=== PATIENT | female | born 1990 | race Hispanic/Latino ===

== ENCOUNTER 2018-06-12 10:48 | Emergency (ER) | payer BC, OTHER ==
[2018-06-12 10:50] VITALS: BMI 20.2
[2018-06-12 10:52] VITALS: RESP 18
[2018-06-12] MEDS ORDERED: Sodium Chloride 0.9% 1,000 ML IV STA (11:49)
--- NOTE | 2018-06-12 12:22 | ED PDOC ---
History of Present Illness History of Present Illness: 27 year old female presents to the ED for evaluation of a cough, posttussive vomiting, chills and sweats since last night. Oatient repors that she was diagnosed with pneumonia last month and the cough has not resolved since. It is sometimes productive of yellow sputum. Last night, she developed chills and sweats. Patient reports she feels like she has the flu. Denies other complaints including fever and body aches. PMD: none provided HPI: Influenza Time Seen by Provider: 06/12/18 11:22 Chief Complaint: Flu-like Symptoms Chief Complaint (Provider): Flu-like Symptoms History Per: Patient Exam Limitations: no limitations Onset/Duration Of Symptoms: Days Symptoms include: cough, vomiting, other (chills and sweats) Past Medical History Reviewed: Historical Data, Nursing Documentation, Vital Signs Vital Signs: Last Vital Signs Temp 98.1 F 06/12/18 10:50 Pulse 90 06/12/18 10:50 Resp 18 06/12/18 10:50 BP 124/75 06/12/18 10:50 Pulse Ox 99 06/12/18 10:50 - Medical History PMH: No Chronic Diseases - Surgical History Other surgeries: 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 Negative for: Fever Respiratory: Positive for: Cough, Sputum (sometimes; yellow) Gastrointestinal: Positive for: Vomiting Physical Exam - Reviewed Nursing Documentation Reviewed: Yes Vital Signs Reviewed: Yes - Physical Exam Appears: Positive for: Non-toxic, No Acute Distress (speaking in full sentences) Head Exam: Positive for: ATRAUMATIC, NORMAL INSPECTION, NORMOCEPHALIC Skin: Positive for: Normal Color, Warm, Dry Eye Exam: Positive for: EOMI, Normal appearance, PERRL Neck: Positive for: Normal, Painless ROM, Supple Cardiovascular/Chest: Positive for: Regular Rate, Rhythm. Negative for: Murmur Respiratory: Positive for: Normal Breath Sounds. Negative for: Respiratory Distress Gastrointestinal/Abdominal: Positive for: Normal Exam, Soft. Negative for: Tenderness Back: Positive for: Normal Inspection. Negative for: L CVA Tenderness, R CVA Tenderness Extremity: Positive for: Normal ROM (x 4). Negative for: Deformity Neurological/Psych: Positive for: Awake, Alert, Normal Tone, Oriented (x 3). Negative for: Motor/Sensory Deficits Medical Decision Making Medical Decision Makin:48 Impression: flu-like symptoms Initial Plan: --CBC --CMP --Urine dip --Urine preg --NS IV 1,000 mls --CXR --Zofran 4 mg IV --Blood cx --UA Accession No. : [id number] Patient Name / ID : ALVARADO Stratton / [id number] Exam Date : 06/12/2018 12:35:30 ( Approved ) Study Comment : Sex / Age : F / 27Y Creator : Mercy Mcgraw MD Dictator : Mercy Mcgraw MD Digital Marketing Program Manager : Replenishment Associate : Mercy Mcgraw MD Approver2 : Report Date : 06/12/2018 13:01:55 My Comment : Date of service: 06/12/2018 HISTORY: Cough COMPARISON: No prior. TECHNIQUE: Chest PA and lateral FINDINGS: LINES AND TUBES: None. LUNG AND PLEURA: The lungs are well inflated. There is consolidation with air fluid level in the right perihilar region. There is multifocal linear atelectasis in the right lower lobe. No pleural effusion or pneumothorax. HEART AND MEDIASTINUM: The heart is not enlarged. No aortic atherosclerotic calcifications present. The hilar and mediastinal contours are within normal limits. SKELETAL STRUCTURES: The bony structures are within normal limits for the patient's age. VISUALIZED UPPER ABDOMEN: Normal. OTHER FINDINGS: There is mild elevation of the right hemidiaphragm. IMPRESSION: Consolidation with air-fluid level in the right perihilar region could represent cavitating pneumonia, abscess or bronchopleural fistula. Correlation with CT scan of the thorax with intravenous contrast is recommended for further evaluation. Accession No. : [id number] Patient Name / ID : ALVARADO MORALEZ / [id number] Exam Date : 06/12/2018 15:46:47 ( Approved ) Study Comment : Sex / Age : F / 27Y Creator : elio parada Dictator : Mercy Mcgraw MD Digital Marketing Program Manager : Replenishment Associate : Mercy Mcgraw MD Approver2 : Report Date : 06/12/2018 16:00:51 My Comment : Date of service: 06/12/2018 PROCEDURE: CT Chest with contrast HISTORY: Abnormal CXR COMPARISON: Plain radiographs performed earlier the same day. TECHNIQUE: Contiguous axial images were obtained through the chest with intravenous contrast enhancement. Sagittal and coronal reconstructions were performed. IV contrast: 90 cc Omnipaque 300 Radiation dose: Total exam DLP = 295.77 mGy-cm. This CT exam was performed using one or more of the following dose reduction techniques: Automated exposure control, adjustment of the mA and/or kV according to patient size, and/or use of iterative reconstruction technique. FINDINGS: LUNGS: The right lung is well inflated. Within the superior segment of the right lung posteriorly and corresponding to the abnormality seen on plain radiographs, there is a air-filled tubular structure with fluid level. There are also coarse linear and curvilinear coarse calcifications in the periphery of this lesion. There is multifocal linear subsegmental atelectasis in the right lower lobe and in the anterior aspect of the right middle lobe. The left lung is well inflated and clear. There are no endobronchial lesions. MEDIASTINUM: Unremarkable thoracic aorta. No aneurysm or dissection. Normal sized heart. There is trace pericardial effusion main pulmonary artery unremarkable. No vascular congestion. No lymphadenopathy. No aortic atherosclerotic calcification or mural plaque present. PLEURA: There is a small right pleural effusion. No left pleural effusion. No pneumothorax. BONES: No fracture. No destructive lesion. UPPER ABDOMEN: Grossly unremarkable. OTHER FINDINGS: None. IMPRESSION: 1. Tubular structure with fluid level and peripheral coarse linear and curvilinear calcifications in the superior segment of the right lower lobe posteriorly. The differential considerations include acute and/or chronic nonspecific infection/inflammation. Bronchopleural fistula and infected/complicated bronchogenic cyst are also other differential considerations. Bronchoscopic correlation is advised. 2. Small right pleural effusion. 18:00 Dr. Rodriguez (private Stucco Plasterer @ [facility]) paged. 18:[address] Turner, recommends Cefepime in addition to Zithromax and transfer to [facility] under his service. Call made to Transfer Center ([phone]). Pt agrees with transfer. Scribe Attestation: Documented by Li Rodriguez, acting as a scribe for Jose J Alcala MD Provider Scribe Attestation: All medical record entries made by the Scribe were at my direction and personally dictated by me. I have reviewed the chart and agree that the record accurately reflects my personal performance of the history, physical exam, medical decision making, and the department course for this patient. I have also personally directed, reviewed, and agree with the discharge instructions and disposition - Laboratory Results Result Diagrams: 06/12/18 12:02 06/12/18 12:02 - ECG O2 Sat by Pulse Oximetry: 99 Pulse Ox Interpretation: Normal - Critical Care Total Time (In Min): 60 Disposition - Clinical Impression Clinical Impression: Bronchopleural fistula - Disposition Disposition: Other Institution ([facility]) Disposition Time: 18:51 Condition: STABLE Forms: [employer] ([employer])
[2018-06-12 12:28] LABS: BASO % 0.4 % (0.0-2.0); EOS % 0.4 % (0.0-4.0); LYMPH # 1.7 K/uL (1.0-4.3); LYMPH % 16.4 % (20.0-40.0); MEAN CELL VOLUME 93.7 fl (81.0-99.0); MEAN CORPUSCULAR HEMOGLOBIN 31.4 pg (27.0-31.0); MEAN CORPUSCULAR HGB CONC 33.5 g/dL (33.0-37.0); MEAN PLATELET VOLUME 7.6 fl (7.2-11.7); MONO # 1.1 K/uL (0.0-0.8); MONO % 11.2 % (0.0-10.0); NEUT # 7.2 K/uL (1.8-7.0); NEUT % 71.6 % (50.0-75.0); RBC 4.47 Mil/uL (3.80-5.20); RED CELL DISTRIBUTION WIDTH 14.7 % (11.5-14.5); WHITE BLOOD COUNT 10.1 K/uL (4.8-10.8)
[2018-06-12 12:38] LABS: SQUAMOUS EPITHIAL 14 /hpf (0-5); URINE BACTERIA RARE (<OCC); URINE BILIRUBIN NEGATIVE (NEGATIVE); URINE BLOOD SMALL (NEGATIVE); URINE CLARITY SLIGHTY-CLOUDY (Clear); URINE COLOR YELLOW (YELLOW); URINE GLUCOSE (UA) NEG (NEGATIVE); URINE LEUKOCYTE ESTERASE NEG Leu/uL (Negative); URINE PROTEIN 30 mg/dL (NEGATIVE); URINE UROBILINOGEN 0.2-1.0 mg/dL (0.2-1.0)
[2018-06-12 12:41] LABS: ALB/GLOB RATIO 1.2 (1.0-2.1); ALBUMIN 4.3 g/dL (3.5-5.0); ALT/SGPT 28 U/L (9-52); AST/SGOT 27 U/L (14-36); BLOOD UREA NITROGEN 6 mg/dl (7-17); CALCIUM 9.5 mg/dL (8.4-10.2); GFR NON-AFRICAN AMERICAN > 60
[2018-06-12] MEDS ORDERED: Potassium Chloride 20 mEq ER Tab PO STA (12:48)
--- NOTE | 2018-06-12 13:05 | RAD ---
Date of service: 06/12/2018 HISTORY: Cough COMPARISON: No prior. TECHNIQUE: Chest PA and lateral FINDINGS: LINES AND TUBES: None. LUNG AND PLEURA: The lungs are well inflated. There is consolidation with air fluid level in the right perihilar region. There is multifocal linear atelectasis in the right lower lobe. No pleural effusion or pneumothorax. HEART AND MEDIASTINUM: The heart is not enlarged. No aortic atherosclerotic calcifications present. The hilar and mediastinal contours are within normal limits. SKELETAL STRUCTURES: The bony structures are within normal limits for the patient's age. VISUALIZED UPPER ABDOMEN: Normal. OTHER FINDINGS: There is mild elevation of the right hemidiaphragm. IMPRESSION: Consolidation with air-fluid level in the right perihilar region could represent cavitating pneumonia, abscess or bronchopleural fistula. Correlation with CT scan of the thorax with intravenous contrast is recommended for further evaluation.
[2018-06-12] MEDS ORDERED: Potassium Chloride 20 mEq ER Tab PO ONE (13:06)
--- NOTE | 2018-06-12 16:32 | CT ---
Date of service: 06/12/2018 PROCEDURE: CT Chest with contrast HISTORY: Abnormal CXR COMPARISON: Plain radiographs performed earlier the same day. TECHNIQUE: Contiguous axial images were obtained through the chest with intravenous contrast enhancement. Sagittal and coronal reconstructions were performed. IV contrast: 90 cc Omnipaque 300 Radiation dose: Total exam DLP = 295.77 mGy-cm. This CT exam was performed using one or more of the following dose reduction techniques: Automated exposure control, adjustment of the mA and/or kV according to patient size, and/or use of iterative reconstruction technique. FINDINGS: LUNGS: The right lung is well inflated. Within the superior segment of the right lung posteriorly and corresponding to the abnormality seen on plain radiographs, there is a air-filled tubular structure with fluid level. There are also coarse linear and curvilinear coarse calcifications in the periphery of this lesion. There is multifocal linear subsegmental atelectasis in the right lower lobe and in the anterior aspect of the right middle lobe. The left lung is well inflated and clear. There are no endobronchial lesions. MEDIASTINUM: Unremarkable thoracic aorta. No aneurysm or dissection. Normal sized heart. There is trace pericardial effusion main pulmonary artery unremarkable. No vascular congestion. No lymphadenopathy. No aortic atherosclerotic calcification or mural plaque present. PLEURA: There is a small right pleural effusion. No left pleural effusion. No pneumothorax. BONES: No fracture. No destructive lesion. UPPER ABDOMEN: Grossly unremarkable. OTHER FINDINGS: None. IMPRESSION: 1. Tubular structure with fluid level and peripheral coarse linear and curvilinear calcifications in the superior segment of the right lower lobe posteriorly. The differential considerations include acute and/or chronic nonspecific infection/inflammation. Bronchopleural fistula and infected/complicated bronchogenic cyst are also other differential considerations. Bronchoscopic correlation is advised. 2. Small right pleural effusion.
[2018-06-12] MEDS ORDERED: Azithromycin 500 MG in Sodium Chloride 0.9% 250 ML IV STA (16:44)
[2018-06-12] MEDS ORDERED: Azithromycin 500 MG IV IVPB ONE (17:09)
[2018-06-12] MEDS ORDERED: Cefepime 1 GM in Sodium Chloride 0.9% 100 ML IVPB STA (18:52)
[2018-06-12] MEDS ORDERED: Cefepime 1 GM in Sodium Chloride 0.9% 100 ML IVPB SCH (21:00)
[2018-06-13 01:02] VITALS: BP 117/56; PULSE 74; TEMP 98.4; O2SAT 94
--- NOTE | 2018-06-13 08:42 | CARD ---
APPROVED REPORT Date of service: 06/12/2018 EKG Measurement Heart [id number] <Conclusion> Normal sinus rhythm Normal Electrocardiogram
== END 2018-06-13 01:01 | disposition short-term general hospital (02) ==
LOC: H.ER 10:48
DX: J86.0 Pyothorax with fistula (principal); Z88.2 Allergy status to sulfonamides
CPT/HCPCS: 71046; 71260; 80053; 81003; 81025; 85025; 87040; 93005; 96361; 96365; 96367; 96375; 99284; J0456; J0692; J2405; J7030